=== PATIENT | female | born 1985 | race Caucasian/White ===

== ENCOUNTER 2018-01-23 17:12 | Emergency (ER) | payer OTHER ==
[~2018-01-23] VITALS: Ht 170.2 cm; Wt 68.0 kg
[2018-01-23 17:20] VITALS: Ht 170.2 cm; Wt 68.0 kg
[2018-01-23 19:02] VITALS: BP 115/67
== END 2018-01-23 19:02 | disposition home or self-care (01) ==
LOC: ED 17:12
DX: B34.9 Viral infection, unspecified (principal); Z86.2 Personal history of diseases of the blood and blood-forming organs and certain disorders involving the immune mechanism